=== PATIENT | female | born 1965 | race Caucasian/White ===

== ENCOUNTER 2021-03-24 22:04 | Emergency (ER) | payer MEDICAID ==
[~2021-03-24] VITALS: Ht 154.9 cm; Wt 84.5 kg
[~2021-03-24 22:04] MED LIST: NO MEDS
[2021-03-24] MEDS ORDERED: QUET25TA PO (22:10)
[2021-03-24 23:15] VITALS: BP 138/85
== END 2021-03-24 23:45 | disposition home or self-care (01) ==
LOC: EMS 22:11
DX: R23.8 Other skin changes (principal); F17.210 Nicotine dependence, cigarettes, uncomplicated; Z76.0 Encounter for issue of repeat prescription; Z88.6 Allergy status to analgesic agent
CPT/HCPCS: 99281; 99283